=== PATIENT | female | born 1950 | race Caucasian/White ===

== ENCOUNTER → 2019-07-03 | Outpatient (CLI) | payer MEDICARE, OTHER ==
[~2019-07-03] MED LIST: ATIVAN0.5 MG PO; BENTYL 20 MG TA20 M1 PO; COLACE100 MG PO; IBUPROFEN 400400 M2 PO; K-DUR 20 MEQ T20 MEQ PO; LOPERAMIDE 2 MG2 M1 PO; PEPCID AC20 M1 PO; TRIAMCINOLONE A80 G2 TOP; ZANTAC 150MG T150 MG PO; ZOFRAN ODT4 MG PO
--- NOTE | 2019-07-03 16:45 | CARDNUC ---
[place] [address] CARDIAC NUCLEAR IMAGING REPORT Name: DONIBOB D Room: [facility]#: [id number] Admission: 07/03/19 Attend Phys: Norberto Aguillon, Discharge: Date of : 48 Date of Service: 07/03/19 1645 Report #: [id number] THIS REPORT FOR: //name// APPROVED REPORT Imaging Protocol: Rest Tc-99m/Stress Tc-99m 1 day Study performed: 07/03/2019 09:45:00 Indication: Dyspnea, Chest pain Patient Location: Out-Patient Stress Tech: Angelica Dugan Stress Nurse: Melyssa Wilkerson RN NM Tech:LUCY Campos Ht: 5 ft 3 in Wt: 128 lbs BSA: 1.60 m2 BMI: 22.67 Medical History Medical History: PVD Medications: no cardiac meds Allergies: penicillin, prednisone, azithromax, tape, benzocaine, latex Cardiac Risk Factors: age, pvd, former tobacco, family hx Exercise History: Physically active Resting Data Rest SPECT myocardial perfusion imaging was performed in supine position 30 minutes following the intravenous injection of 10.8 mCi of Tc-99m Sestamibi. Time of rest injection: 1015 Date: 07/03/2019 The images were gated to evaluate regional wall motion and calculate left ventricular ejection fraction. Administration Route: IV Administration Site: Right AC Pharmacologic Stress Pharmacologic stress test was performed by injecting Regadenoson 0.4 mg IV push over 10-15 seconds immediately followed by the intravenous injection of 33.2 mCi of Tc-99m Sestamibi. Time of stress injection: 1140 Date: 07/03/2019 Administration Route: IV Administration Site: Right AC Gated Stress SPECT was performed 40 minutes after stress injection. The images were gated to evaluate regional wall motion [place] [address] CARDIAC NUCLEAR IMAGING REPORT Name: [facility]OB MARION [id number] Admission: 07/03/19 Attend Phys: Norberto Aguillon, Discharge: Date of : 48 Date of Service: 07/03/19 1645 Report #: [id number] left ventricular ejection fraction. Prone imaging was performed. Stress Test Details Stress Test: Exercise stress testing was performed using a Lan protocol. HR Max Heart Rate (APMHR): 150 bpm Resting HR: 71 bpm Target HR (85% APMHR): 127 bpm Max HR Achieved: 156 bpm % of APMHR: 104 Recovery HR: 88 bpm BP Resting BP: 135/72 mmHg Max BP: 168/68 mmHg Recovery BP: 150/74 mmHg ECG Resting ECG: Clear Stress ECG: Sinus Tachycardia ST Change: Upsloping ST depression Maximum ST Deviation: 0.5 mm Arrhythmia: None Recovery ECG: Sinus Rhythm Recovery ST Change: Upsloping ST depression Recovery ST Deviation: 0.5 mm Recovery Arrhythmia: None Clinical Reason for Termination: Fatigue, Dyspnea Exercise duration: 6 min 6 sec Exercise capacity: 7.17 METs Functional Aerobic Impairment 104% The patient tolerated standard Lan protocol exercise without significant cardiac symptoms. Stress ECG Conclusion The baseline 12-lead EKG showed sinus rhythm without significant ST segment abnormalities. EKGs obtained during and post exercise showed sinus rhythm and sinus tachycardia with 0.[address] segment depression. There were no stress-induced arrhythmias. Study Quality Study: Good Artifact: [place] [address] CARDIAC NUCLEAR IMAGING REPORT Name: BOB MARION Room: [facility]#: [id number] Admission: 07/03/19 Attend Phys: Norberto Aguillon, Discharge: Date of : 48 Date of Service: 07/03/19 1645 Report #: [id number] Study Data At rest, the left ventricular ejection fraction was 75%.. Post stress, the left ventricular ejection was 78%.. TID = 0.91. Perfusion Perfusion images show uniform uptake of the radioisotope throughout the myocardium both at rest and post exercise stress. Wall Motion Normal left ventricular wall motion. Nuclear Conclusion ECG Findings: negative for ischemia Clinical Findings: negative for ischemia Nuclear Findings: negative for ischemia Exercise Capacity: normal Left Ventricular Function: normal Risk Study: low Myocardial perfusion images showed no defect to suggest infarct or ischemia. Left ventricular systolic function appears normal in the 70s. This is a low risk study. <Conclusion> The baseline 12-lead EKG showed sinus rhythm without significant ST segment abnormalities. EKGs obtained during and post exercise showed sinus rhythm and sinus tachycardia with 0.[address] segment depression. There were no stress-induced arrhythmias. <ELECTRONICALLY SIGNED> By: Norberto Aguillon MD, FACC 07/03/19 1645 1645 1645 Norberto Aguillon MD, FACC /INF
== END ==
LOC: M.NUC 05-27 10:04 → M.CRD 09:00 → M.NUC 09:50
DX: R06.09 Other forms of dyspnea (principal); R07.89 Other chest pain; I73.9 Peripheral vascular disease, unspecified; Z82.49 Family history of ischemic heart disease and other diseases of the circulatory system; Z91.040 Latex allergy status; Z88.0 Allergy status to penicillin; Z88.8 Allergy status to other drugs, medicaments and biological substances

== ENCOUNTER 2021-06-17 12:18 | Emergency (ER) | payer MEDICARE, OTHER ==
[~2021-06-17] VITALS: Ht 157.5 cm; Wt 47.2 kg
[2021-06-17] MEDS ORDERED: ATIVAN0.5 M1 PO (12:32)
[2021-06-17] MEDS ORDERED: KEFLEX250 MG PO (12:33)
[2021-06-17] MEDS ORDERED: ZYRTEC10 M5 PO (12:33)
[2021-06-17] MEDS ORDERED: PREDNISONE 20 M20 MG PO (12:33)
[2021-06-17] MEDS ORDERED: PEPCID40 MG PO (12:34)
[2021-06-17 12:53] VITALS: BP 138/62
== END 2021-06-17 12:54 | disposition home or self-care (01) ==
LOC: M.ERS 12:18
DX: L29.8 Other pruritus (principal); T36.1X5A Adverse effect of cephalosporins and other beta-lactam antibiotics, initial encounter; H93.13 Tinnitus, bilateral; Z79.2 Long term (current) use of antibiotics; Z90.711 Acquired absence of uterus with remaining cervical stump; Z90.49 Acquired absence of other specified parts of digestive tract; Z79.899 Other long term (current) drug therapy; Z88.1 Allergy status to other antibiotic agents; Z91.040 Latex allergy status; Z88.4 Allergy status to anesthetic agent; Z88.0 Allergy status to penicillin; Z88.8 Allergy status to other drugs, medicaments and biological substances; Y92.89 Other specified places as the place of occurrence of the external cause